=== PATIENT | male | born 1965 | race Two or more races ===

== ENCOUNTER 2020-08-09 10:36 | Emergency (ER) | payer MEDICAID, OTHER ==
[~2020-08-09] VITALS: Ht 193 cm; Wt 136.1 kg
[2020-08-09] MEDS ORDERED: LIDOCAINE 1% (LOCAL ANESTH.) PF 5ml SDV ID ONE (11:00)
[2020-08-09] MEDS ORDERED: ONDANSETRON HCL 4 MG/2 ML VIAL IV ONE (11:00)
[2020-08-09] MEDS ORDERED: MORPHINE SULFATE 4 MG/ML SYR/VIAL IV ONE (11:00)
[2020-08-09] MEDS ORDERED: SODIUM CHLORIDE 0.9% 1,000 ML IV ONE (11:00)
[2020-08-09] MEDS ORDERED: TETANUS-DIPTH-ACEL PERTUSSIS 0.5ML SYR Tdap IM ONE (11:00)
[2020-08-09] MEDS ORDERED: ceFAZolin 1GM/50ML 50 ML IV ONE (11:00)
[2020-08-09 11:09] LABS: Basophils # (auto) 0.1 10 ^3/uL (0-0.2); Basophils % (auto) 1.2 % (0.0-2.0); Eosinophils # (auto) 0.1 10 ^3/uL (0-0.8); Hematocrit 43.6 % (41.0-53.0); Lymphocytes # (auto) 2.1 10 ^3/uL (0.4-5.4); Lymphocytes % (auto) 28.6 % (10.0-50.0); Mean Corpuscular Hemoglobin 30.2 pg (28.0-32.0); Mean Corpuscular Hgb Conc. 34.4 g/dL (32.0-36.0); Mean Corpuscular Volume 87.8 fL (80.0-100.0); Monocytes # (auto) 0.4 10 ^3/uL (0-1.3); Monocytes % (auto) 5.6 % (0.0-12.0); Neutrophils # (auto) 4.5 10 ^3/uL (1.6-8.6); Neutrophils % (auto) 62.6 % (37.0-80.0); Nucleated Red Blood Cells % 0.1 %; Platelet Count (auto) 259 10^3/uL (140-450); Red Blood Cells 4.96 10^6/uL (4.5-5.90); Red Cell Distribution Width 14.4 % (11.8-14.3); White Blood Cell 7.2 10^3/uL (4.4-10.8)
[2020-08-09 11:35] LABS: Albumin 3.9 g/dL (3.4-5.0); Calcium 8.7 mg/dL (8.5-10.1); Potassium 3.9 mmol/L (3.5-5.1)
[2020-08-09 11:38] LABS: BUN/Creatinine Ratio 16.7; Bilirubin, Total 0.4 mg/dL (0.2-1.0); Total Protein 7.6 g/dL (6.4-8.2)
[2020-08-09 14:33] VITALS: BP 123/75
== END 2020-08-09 14:46 | disposition short-term general hospital (02) ==
LOC: ER 10:36
DX: S66.821A Laceration of other specified muscles, fascia and tendons at wrist and hand level, right hand, initial encounter (principal); F17.210 Nicotine dependence, cigarettes, uncomplicated; E11.65 Type 2 diabetes mellitus with hyperglycemia; Z23 Encounter for immunization; Z20.822 Contact with and (suspected) exposure to COVID-19; W01.0XXA Fall on same level from slipping, tripping and stumbling without subsequent striking against object, initial encounter; Y93.89 Activity, other specified; Y92.89 Other specified places as the place of occurrence of the external cause; Y99.8 Other external cause status
CPT/HCPCS: 29125; 36415; 73130; 80053; 85025; 87426; 90471; 90715; 96365; 96375; 99285; J0690; J2270; J2405; J7030

== ENCOUNTER 2021-08-09 13:17 | Emergency (ER) | payer MEDICAID ==
[~2021-08-09] VITALS: Ht 193 cm; Wt 136.1 kg
[2021-08-09] MEDS ORDERED: CEPH-509 PO (16:16)
[2021-08-09] MEDS ORDERED: CLIN300C8 PO (16:16)
[2021-08-09 17:18] VITALS: BP 111/60
== END 2021-08-09 17:19 | disposition home or self-care (01) ==
LOC: ER 13:17
DX: L03.115 Cellulitis of right lower limb (principal); L03.116 Cellulitis of left lower limb; I89.1 Lymphangitis; E11.9 Type 2 diabetes mellitus without complications; F17.210 Nicotine dependence, cigarettes, uncomplicated; Z79.2 Long term (current) use of antibiotics; Z79.899 Other long term (current) drug therapy
CPT/HCPCS: 93005; 93970

== ENCOUNTER 2023-03-17 17:36 | Inpatient (IN) | payer MEDICAID ==
[~2023-03-17] VITALS: Ht 193 cm; Wt 155.4 kg
[~2023-03-17 17:36] MED LIST: CEPH-509 PO; CLIN300C70 PO
[2023-03-17] MEDS ORDERED: FUROSEMIDE 20 MG/2 ML VIAL IV ONE (19:15)
[2023-03-17 19:49] LABS: Basophils # (auto) 0 10 ^3/uL (0-0.2); Basophils % (auto) 0.6 % (0.0-2.0); Eosinophils # (auto) 0.1 10 ^3/uL (0-0.8); Eosinophils % (auto) 1.2 % (0.0-7.0); Hematocrit 41.1 % (41.0-53.0); Hemoglobin 13.3 g/dL (13.5-17.5); Lymphocytes # (auto) 1.1 10 ^3/uL (0.4-5.4); Lymphocytes % (auto) 15.5 % (10.0-50.0); Mean Corpuscular Hemoglobin 29.5 pg (28.0-32.0); Mean Corpuscular Hgb Conc. 32.4 g/dL (32.0-36.0); Mean Corpuscular Volume 91.2 fL (80.0-100.0); Monocytes # (auto) 0.5 10 ^3/uL (0-1.3); Monocytes % (auto) 6.6 % (0.0-12.0); Neutrophils # (auto) 5.5 10 ^3/uL (1.6-8.6); Neutrophils % (auto) 76.1 % (37.0-80.0); Red Blood Cells 4.51 10^6/uL (4.5-5.90); White Blood Cell 7.3 10^3/uL (4.4-10.8)
[2023-03-17 20:17] LABS: Alanine Aminotransferase 24 U/L (7-40); Albumin 3.7 g/dL (3.2-4.8); Alkaline Phosphatase 156 U/L (46-116); Anion Gap 8 (5-15); Aspartate Aminotransferase 13 U/L (13-40); Bilirubin, Total 1.1 mg/dL (0.2-1.0); Blood Urea Nitrogen 12 mg/dL (9-23); Carbon Dioxide 24 mmol/L (20-30); Chloride 105 mmol/L (98-107); Glucose 391 mg/dL (74-106); Sodium 137 mmol/L (136-145); Total Protein 6.1 g/dL (5.7-8.2)
[2023-03-17] MEDS ORDERED: IOHEXOL 350 MG/ML 100ML IJ ONE (20:19)
[2023-03-17 20:21] LABS: INR 1.15 (0.9-1.15); Partial Thromboplastin Time 27.3 SEC (24.5-34.5)
[2023-03-17] MEDS ORDERED: NITROGLYCERIN 0.4 MG SL TAB SL PRN (23:45)
[2023-03-17] MEDS ORDERED: ONDANSETRON HCL 4 MG/2 ML VIAL IV PRN (23:45)
[2023-03-17] MEDS ORDERED: DEXTROSE (50%) 50ML SYRG IV PRN (23:45)
[2023-03-17] MEDS ORDERED: MORPHINE SULFATE INJ 2 MG/ml SYRG IV PRN (23:45)
[2023-03-17 23:58] VITALS: PULSE 98; RESP 18; O2SAT 98
[2023-03-18] VITALS (8 sets, daily range): BP systolic 101–140; BP diastolic 67–77; PULSE 86–94; RESP 16–20; TEMP 97.4–98.5; O2SAT 94–99
[2023-03-18] MEDS ORDERED: cefTRIAXone 1GM/50ML D5W 50 ML IV ONE
[2023-03-18] MEDS: ACCU-CHEK COMFORT CURVE STRIP VI SCH ×4 (00:34→17:20)
[2023-03-18] MEDS: InsuLIN REG 1unit/0.01ml Soln (100units/ml) SC SCH ×4 (00:39→17:45)
[2023-03-18 02:34] LABS: Urine Epithelial Cast None Seen /hpf (<5)
[2023-03-18 02:45] LABS: Urine Bacteria NONE SEEN /hpf (None Seen); Urine Blood Negative /uL (Negative); Urine Clarity Clear (Clear); Urine Mucus FEW (None Seen); Urine Protein, UAD Negative (Negative); Urine Specific Gravity 1.009 (1.001-1.035); Urine Urobilinogen Normal (Negative); Urine WBC <1 /hpf (0 - 3)
[2023-03-18 02:46] LABS: Urine Color STRAW (Yellow)
[2023-03-18] MEDS ORDERED: ACETAMINOPHEN 325 MG TAB PO PRN (03:30)
[2023-03-18 06:54] LABS: Basophils # (auto) 0.1 10 ^3/uL (0-0.2); Basophils % (auto) 0.8 % (0.0-2.0); Eosinophils # (auto) 0.1 10 ^3/uL (0-0.8); Hematocrit 38.7 % (41.0-53.0); Hemoglobin 12.9 g/dL (13.5-17.5); Lymphocytes # (auto) 1.2 10 ^3/uL (0.4-5.4); Lymphocytes % (auto) 17.5 % (10.0-50.0); Mean Corpuscular Hemoglobin 29.9 pg (28.0-32.0); Mean Corpuscular Hgb Conc. 33.3 g/dL (32.0-36.0); Mean Corpuscular Volume 89.6 fL (80.0-100.0); Monocytes # (auto) 0.5 10 ^3/uL (0-1.3); Neutrophils # (auto) 4.8 10 ^3/uL (1.6-8.6); Neutrophils % (auto) 72.7 % (37.0-80.0); Nucleated Red Blood Cells % 0.2 %; Red Blood Cells 4.32 10^6/uL (4.5-5.90); Red Cell Distribution Width 14.9 % (11.8-14.3); White Blood Cell 6.7 10^3/uL (4.4-10.8)
[2023-03-18 07:12] LABS: Alanine Aminotransferase 23 U/L (7-40); Alkaline Phosphatase 149 U/L (46-116); Anion Gap 7 (5-15); BUN/Creatinine Ratio 9.8 (10.0-20.0); Blood Urea Nitrogen 10 mg/dL (9-23); Calcium 8.9 mg/dL (8.5-10.1); Carbon Dioxide 25 mmol/L (20-30); Chloride 106 mmol/L (98-107); Sodium 138 mmol/L (136-145)
[2023-03-18 07:13] LABS: Albumin 3.6 g/dL (3.2-4.8); Aspartate Aminotransferase 13 U/L (13-40); Bilirubin, Total 1.2 mg/dL (0.2-1.0); Total Protein 5.9 g/dL (5.7-8.2)
[2023-03-18 07:16] LABS: Glucose 194 mg/dL (74-106)
[2023-03-18] MEDS ORDERED: FUROSEMIDE 40 MG TAB PO SCH (10:00)
[2023-03-18] MEDS: ASPirin 81 mg TAB PO SCH (10:10)
[2023-03-18] MEDS: CARVEDILOL 3.125 MG TAB PO SCH ×2 (10:12→22:07)
[2023-03-18] MEDS: FUROSEMIDE 20 MG/2 ML VIAL IV SCH ×2 (17:38→17:46)
[2023-03-18] MEDS ORDERED: FUROSEMIDE 20 MG/2 ML VIAL IV SCH (18:00)
[2023-03-19] MEDS: ACCU-CHEK COMFORT CURVE STRIP VI SCH ×4 (00:05→18:01)
[2023-03-19] MEDS: InsuLIN REG 1unit/0.01ml Soln (100units/ml) SC SCH ×4 (00:07→18:00)
[2023-03-19 05:20] VITALS: BP 127/78; PULSE 88; RESP 20; O2SAT 98
[2023-03-19] MEDS: FUROSEMIDE 20 MG/2 ML VIAL IV SCH ×2 (05:54→17:55)
[2023-03-19 08:00] VITALS: BP 117/72; PULSE 51; PULSE 76; RESP 20; TEMP 97.6; O2SAT 93
[2023-03-19 09:00] VITALS: BP 117/72; PULSE 51; RESP 20; TEMP 97.6; O2SAT 93
[2023-03-19] MEDS: ASPirin 81 mg TAB PO SCH (09:47)
[2023-03-19] MEDS: CARVEDILOL 3.125 MG TAB PO SCH ×2 (09:48→21:48)
[2023-03-19 13:00] VITALS: BP 110/62; PULSE 93; RESP 22; TEMP 97.7; O2SAT 94
[2023-03-19 20:00] VITALS: BP 113/58; PULSE 111; PULSE 97; RESP 20; TEMP 97.8
[2023-03-19 22:00] VITALS: BP 113/58; PULSE 97; RESP 20; TEMP 97.8; O2SAT 97
[2023-03-20] VITALS (8 sets, daily range): BP systolic 87–115; BP diastolic 46–83; PULSE 78–99; RESP 18–20; TEMP 97.2–98.8; O2SAT 95–97
[2023-03-20] MEDS: ACCU-CHEK COMFORT CURVE STRIP VI SCH ×4 (00:16→18:29)
[2023-03-20] MEDS: InsuLIN REG 1unit/0.01ml Soln (100units/ml) SC SCH ×4 (00:18→18:28)
[2023-03-20] MEDS: FUROSEMIDE 20 MG/2 ML VIAL IV SCH ×2 (05:47→18:27)
[2023-03-20] MEDS: ASPirin 81 mg TAB PO SCH (10:16)
[2023-03-20] MEDS: CARVEDILOL 3.125 MG TAB PO SCH ×2 (10:17→22:00)
[2023-03-20] MEDS: cefTRIAXone 1GM/50ML D5W 50 ML IV SCH (17:11)
[2023-03-20] MEDS: AZITHROMYCIN 500MG/ 250ML 250 ML IV SCH (18:08)
[2023-03-21] VITALS (7 sets, daily range): BP systolic 103–119; BP diastolic 62–77; PULSE 75–100; RESP 18–20; TEMP 97.1–98.2; O2SAT 93–96
[2023-03-21] MEDS: InsuLIN REG 1unit/0.01ml Soln (100units/ml) SC SCH ×5 (00:36→23:43)
[2023-03-21] MEDS: ACCU-CHEK COMFORT CURVE STRIP VI SCH ×5 (05:38→23:38)
[2023-03-21] MEDS: FUROSEMIDE 20 MG/2 ML VIAL IV SCH ×2 (05:39→18:09)
[2023-03-21 06:34] LABS: Basophils # (auto) 0 10 ^3/uL (0-0.2); Basophils % (auto) 0.8 % (0.0-2.0); Eosinophils # (auto) 0.1 10 ^3/uL (0-0.8); Hematocrit 39.5 % (41.0-53.0); Hemoglobin 13.1 g/dL (13.5-17.5); Lymphocytes # (auto) 1.6 10 ^3/uL (0.4-5.4); Mean Corpuscular Hemoglobin 29.4 pg (28.0-32.0); Mean Corpuscular Hgb Conc. 33.2 g/dL (32.0-36.0); Mean Corpuscular Volume 88.6 fL (80.0-100.0); Monocytes # (auto) 0.4 10 ^3/uL (0-1.3); Monocytes % (auto) 7.8 % (0.0-12.0); Neutrophils # (auto) 3.5 10 ^3/uL (1.6-8.6); Neutrophils % (auto) 61.4 % (37.0-80.0); Nucleated Red Blood Cells % 0.1 %; Red Blood Cells 4.46 10^6/uL (4.5-5.90); Red Cell Distribution Width 14.5 % (11.8-14.3); White Blood Cell 5.7 10^3/uL (4.4-10.8)
[2023-03-21 06:40] LABS: Anion Gap 6 (5-15); Carbon Dioxide 28 mmol/L (20-30); Chloride 103 mmol/L (98-107); Potassium 3.9 mmol/L (3.5-5.1); Sodium 137 mmol/L (136-145)
[2023-03-21 06:42] LABS: Calcium 8.9 mg/dL (8.7-10.4)
[2023-03-21 06:46] LABS: BUN/Creatinine Ratio 20.5 (10.0-20.0); Blood Urea Nitrogen 23 mg/dL (9-23); Glucose 222 mg/dL (74-106)
[2023-03-21] MEDS: ASPirin 81 mg TAB PO SCH (07:52)
[2023-03-21] MEDS: cefTRIAXone 1GM/50ML D5W 50 ML IV SCH (07:52)
[2023-03-21] MEDS: CARVEDILOL 3.125 MG TAB PO SCH ×2 (07:53→21:44)
[2023-03-21] MEDS: AZITHROMYCIN 500MG/ 250ML 250 ML IV SCH (10:13)
[2023-03-22] VITALS (8 sets, daily range): BP systolic 86–120; BP diastolic 40–69; PULSE 79–100; RESP 16–20; TEMP 97.7–99; O2SAT 94–96
[2023-03-22] MEDS: ACCU-CHEK COMFORT CURVE STRIP VI SCH ×4 (05:46→23:16)
[2023-03-22] MEDS: FUROSEMIDE 20 MG/2 ML VIAL IV SCH ×2 (05:55→18:24)
[2023-03-22] MEDS: InsuLIN REG 1unit/0.01ml Soln (100units/ml) SC SCH ×4 (06:08→23:18)
[2023-03-22] MEDS: ASPirin 81 mg TAB PO SCH (08:12)
[2023-03-22] MEDS: cefTRIAXone 1GM/50ML D5W 50 ML IV SCH (08:13)
[2023-03-22] MEDS: AZITHROMYCIN 500MG/ 250ML 250 ML IV SCH (09:46)
[2023-03-22] MEDS: CARVEDILOL 3.125 MG TAB PO SCH ×2 (10:00→21:28)
[2023-03-23 05:00] VITALS: BP 104/66; PULSE 82; RESP 16; TEMP 99; O2SAT 93
[2023-03-23] MEDS: FUROSEMIDE 20 MG/2 ML VIAL IV SCH (06:00)
[2023-03-23] MEDS: ACCU-CHEK COMFORT CURVE STRIP VI SCH ×2 (06:00→12:22)
[2023-03-23] MEDS: InsuLIN REG 1unit/0.01ml Soln (100units/ml) SC SCH ×2 (06:03→12:22)
[2023-03-23 07:57] VITALS: O2SAT 96
[2023-03-23 08:00] VITALS: PULSE 89
[2023-03-23] MEDS: CARVEDILOL 3.125 MG TAB PO SCH (09:37)
[2023-03-23] MEDS: ASPirin 81 mg TAB PO SCH (09:37)
[2023-03-23] MEDS: cefTRIAXone 1GM/50ML D5W 50 ML IV SCH (09:38)
[2023-03-23] MEDS ORDERED: FURO1TAB31 PO (10:59)
[2023-03-23] MEDS ORDERED: METF-371 PO (10:59)
[2023-03-23] MEDS ORDERED: METH4PAK PO (10:59)
[2023-03-23] MEDS ORDERED: AZIT-81 PO (10:59)
[2023-03-23] MEDS ORDERED: CIPR0.3S67 OP (11:02)
[2023-03-23 11:05] VITALS: BP 111/56; PULSE 88; RESP 18; TEMP 98.6
[2023-03-23] MEDS ORDERED: BLOO-200 XX (11:14)
[2023-03-23] MEDS: AZITHROMYCIN 500MG/ 250ML 250 ML IV SCH (11:28)
== END 2023-03-23 12:26 | disposition home or self-care (01) | DRG 139 ==
LOC: ER 17:36 → TELE 23:39 → TELE-WESTW 03-18 01:05
PROVIDERS: ADMIT Nurse Practitioner; ATTEND Internal Medicine
DX: J15.9 Unspecified bacterial pneumonia (principal); I50.23 Acute on chronic systolic (congestive) heart failure; I42.9 Cardiomyopathy, unspecified; R18.8 Other ascites; I11.0 Hypertensive heart disease with heart failure; K74.60 Unspecified cirrhosis of liver; R59.0 Localized enlarged lymph nodes; E11.65 Type 2 diabetes mellitus with hyperglycemia; E66.01 Morbid (severe) obesity due to excess calories; F17.210 Nicotine dependence, cigarettes, uncomplicated; Z68.41 Body mass index [BMI] 40.0-44.9, adult; Z83.3 Family history of diabetes mellitus; Z79.4 Long term (current) use of insulin; Z79.84 Long term (current) use of oral hypoglycemic drugs; Z91.199 Patient's noncompliance with other medical treatment and regimen due to unspecified reason
CPT/HCPCS: 36415; 71045; 71275; 80048; 80053; 81001; 82962; 83880; 84484; 85025; 85379; 85610; 85730; 93306; 93970; G0378; J1815

== ENCOUNTER 2023-04-26 19:50 | Inpatient (IN) | payer MEDICAID ==
[~2023-04-26] VITALS: Ht 193 cm; Wt 166.1 kg
[~2023-04-26 19:50] MED LIST changes: +AZIT-81 PO; +BLOO-200 XX; -CEPH-509 PO; +CIPR0.3S67 OP; -CLIN300C70 PO; +FURO1TAB31 PO; +METF-371 PO; +METH4PAK PO
[2023-04-26 21:48] LABS: Basophils # (auto) 0.1 10 ^3/uL (0-0.2); Eosinophils # (auto) 0.1 10 ^3/uL (0-0.8); Eosinophils % (auto) 1.2 % (0.0-7.0); Hematocrit 42.4 % (41.0-53.0); Hemoglobin 13.7 g/dL (13.5-17.5); Lymphocytes # (auto) 1.3 10 ^3/uL (0.4-5.4); Lymphocytes % (auto) 20.8 % (10.0-50.0); Mean Corpuscular Hemoglobin 28.7 pg (28.0-32.0); Mean Corpuscular Hgb Conc. 32.3 g/dL (32.0-36.0); Mean Corpuscular Volume 88.8 fL (80.0-100.0); Monocytes # (auto) 0.4 10 ^3/uL (0-1.3); Neutrophils # (auto) 4.3 10 ^3/uL (1.6-8.6); Nucleated Red Blood Cells % 0.1 %; Red Blood Cells 4.77 10^6/uL (4.5-5.90); Red Cell Distribution Width 15.3 % (11.8-14.3); White Blood Cell 6.2 10^3/uL (4.4-10.8)
[2023-04-26 22:04] LABS: Alanine Aminotransferase 19 U/L (7-40); Albumin 4.1 g/dL (3.2-4.8); Alkaline Phosphatase 155 U/L (46-116); Anion Gap 6 (5-15); Aspartate Aminotransferase 16 U/L (13-40); BUN/Creatinine Ratio 11.7 (10.0-20.0); Bilirubin, Total 1.7 mg/dL (0.2-1.0); Blood Urea Nitrogen 13 mg/dL (9-23); Calcium 9.2 mg/dL (8.7-10.4); Carbon Dioxide 25 mmol/L (20-30); Chloride 105 mmol/L (98-107); Glucose 268 mg/dL (74-106); Lipase 29 U/L (12-53); Potassium 3.7 mmol/L (3.5-5.1); Sodium 136 mmol/L (136-145); Total Protein 6.8 g/dL (5.7-8.2)
[2023-04-26 23:12] VITALS: PULSE 98; RESP 20; O2SAT 98
[2023-04-26] MEDS: HYDROcodone-ACET 10/325MG TAB PO ONE (23:19)
[2023-04-27] VITALS (7 sets, daily range): BP systolic 89–142; BP diastolic 51–72; PULSE 80–115; RESP 17–21; TEMP 97.4–98.8; O2SAT 95–100
[2023-04-27] MEDS: INSULIN LISPRO (HUMAN) 100 UNITS/ML ML SC ONE (00:45)
[2023-04-27] MEDS ORDERED: VANCOMYCIN PER PHARMACY 0 MG IV SCH (00:45)
[2023-04-27] MEDS: HYDROmorphone HCL 2 MG/ML VL/or syr IV ONE (00:45)
[2023-04-27] MEDS: PIPERACILLIN-TAZOB 3.375GM 100 ML IV ONE (00:45)
[2023-04-27] MEDS: FUROSEMIDE 40 MG/4 ML VIAL IV ONE (00:45)
[2023-04-27] MEDS: VANCOMYCIN 1GM/200ML 200 ML IV SCH ×2 (01:00→10:50)
[2023-04-27] MEDS ORDERED: DOCUSATE SOD 100 MG CAP PO PRN (02:30)
[2023-04-27] MEDS ORDERED: ACETAMINOPHEN 325 MG TAB PO PRN (02:30)
[2023-04-27] MEDS ORDERED: DEXTROSE (50%) 50ML SYRG IV PRN (02:30)
[2023-04-27 03:36] LABS: Basophils # (auto) 0.1 10 ^3/uL (0-0.2); Basophils % (auto) 0.9 % (0.0-2.0); Eosinophils # (auto) 0.1 10 ^3/uL (0-0.8); Eosinophils % (auto) 2.1 % (0.0-7.0); Hematocrit 39.4 % (41.0-53.0); Hemoglobin 12.7 g/dL (13.5-17.5); Lymphocytes # (auto) 1.4 10 ^3/uL (0.4-5.4); Lymphocytes % (auto) 25.4 % (10.0-50.0); Mean Corpuscular Hemoglobin 28.6 pg (28.0-32.0); Mean Corpuscular Hgb Conc. 32.2 g/dL (32.0-36.0); Monocytes # (auto) 0.5 10 ^3/uL (0-1.3); Monocytes % (auto) 8.4 % (0.0-12.0); Neutrophils # (auto) 3.5 10 ^3/uL (1.6-8.6); Neutrophils % (auto) 63.2 % (37.0-80.0); Red Blood Cells 4.43 10^6/uL (4.5-5.90); Red Cell Distribution Width 15.3 % (11.8-14.3); White Blood Cell 5.5 10^3/uL (4.4-10.8)
[2023-04-27 03:55] LABS: Alanine Aminotransferase 17 U/L (7-40); Albumin 3.7 g/dL (3.2-4.8); Alkaline Phosphatase 139 U/L (46-116); Anion Gap 6 (5-15); Aspartate Aminotransferase 15 U/L (13-40); BUN/Creatinine Ratio 12.6 (10.0-20.0); Bilirubin, Total 1.6 mg/dL (0.2-1.0); Blood Urea Nitrogen 14 mg/dL (9-23); Calcium 8.8 mg/dL (8.7-10.4); Carbon Dioxide 26 mmol/L (20-30); Chloride 106 mmol/L (98-107); Glucose 188 mg/dL (74-106); Potassium 3.3 mmol/L (3.5-5.1); Sodium 138 mmol/L (136-145); Total Protein 6.1 g/dL (5.7-8.2)
[2023-04-27] MEDS ORDERED: MORPHINE SULFATE INJ 2 MG/ml SYRG IV PRN (05:00)
[2023-04-27] MEDS ORDERED: NITROGLYCERIN 0.4 MG SL TAB SL PRN (05:00)
[2023-04-27] MEDS: SODIUM CHLOR 0.9% PF (SALINE LOCK) 10ML VIAL/SYR IV SCH (05:26)
[2023-04-27 05:35] LABS: Urine Bacteria FEW /hpf (None Seen); Urine Blood Negative /uL (Negative); Urine Clarity Clear (Clear); Urine Color Colorless (Yellow); Urine Protein, UAD Negative (Negative); Urine Specific Gravity 1.008 (1.001-1.035); Urine Urobilinogen Normal (Negative); Urine WBC 1 /hpf (0 - 3)
[2023-04-27] MEDS: InsuLIN REG 1unit/0.01ml Soln (100units/ml) SC SCH ×2 (05:57→22:47)
[2023-04-27] MEDS: ACCU-CHEK COMFORT CURVE STRIP VI SCH (05:57)
[2023-04-27] MEDS: CARVEDILOL 3.125 MG TAB PO SCH (10:50)
[2023-04-27] MEDS: FUROSEMIDE 40 MG/4 ML VIAL IV SCH (10:51)
[2023-04-27] MEDS: ASPirin 81 mg TAB PO SCH (10:51)
[2023-04-27] MEDS: PIPERACILLIN-TAZOB 3.375GM 100 ML IV SCH (15:10)
[2023-04-27 17:04] LABS: Triglycerides 45 mg/dL (< 150)
[2023-04-27 17:05] LABS: LDL Cholesterol 72 mg/dL (< 100)
[2023-04-27 17:06] LABS: Cholesterol 109 mg/dL (< 200); HDL Cholesterol 29 mg/dL (40-59)
[2023-04-27] MEDS: POTASSIUM CHL 20 Meq TABLET PO SCH (17:47)
[2023-04-27] MEDS: HYDROcodone-ACET 5/325MG TAB PO PRN (22:50)
[2023-04-27] MEDS: BACITRACIN TOP OINT 1 UD PKG TOP SCH (23:02)
[2023-04-28] VITALS (7 sets, daily range): BP systolic 106–118; BP diastolic 71–77; PULSE 81–96; RESP 18–21; TEMP 96.6–97.9; O2SAT 94–100
[2023-04-28 06:05] LABS: Basophils # (auto) 0.1 10 ^3/uL (0-0.2); Basophils % (auto) 1.5 % (0.0-2.0); Eosinophils # (auto) 0.1 10 ^3/uL (0-0.8); Eosinophils % (auto) 2.1 % (0.0-7.0); Hemoglobin 12.9 g/dL (13.5-17.5); Lymphocytes # (auto) 1.4 10 ^3/uL (0.4-5.4); Lymphocytes % (auto) 28.1 % (10.0-50.0); Mean Corpuscular Hemoglobin 29.1 pg (28.0-32.0); Mean Corpuscular Hgb Conc. 33.1 g/dL (32.0-36.0); Monocytes # (auto) 0.4 10 ^3/uL (0-1.3); Monocytes % (auto) 7.8 % (0.0-12.0); Neutrophils # (auto) 2.9 10 ^3/uL (1.6-8.6); Neutrophils % (auto) 60.5 % (37.0-80.0); Nucleated Red Blood Cells % 0.1 %; Red Blood Cells 4.43 10^6/uL (4.5-5.90); Red Cell Distribution Width 14.8 % (11.8-14.3); White Blood Cell 4.8 10^3/uL (4.4-10.8)
[2023-04-28 06:20] LABS: Alanine Aminotransferase 19 U/L (7-40); Albumin 3.7 g/dL (3.2-4.8); Alkaline Phosphatase 149 U/L (46-116); Anion Gap 8 (5-15); Aspartate Aminotransferase 20 U/L (13-40); BUN/Creatinine Ratio 14.4 (10.0-20.0); Blood Urea Nitrogen 15 mg/dL (9-23); Carbon Dioxide 23 mmol/L (20-30); Chloride 106 mmol/L (98-107); Glucose 140 mg/dL (74-106); Potassium 3.4 mmol/L (3.5-5.1); Sodium 137 mmol/L (136-145)
[2023-04-28 06:21] LABS: Bilirubin, Total 1.6 mg/dL (0.2-1.0); Total Protein 6.2 g/dL (5.7-8.2)
[2023-04-28] MEDS: NICOTINE 21MG/24 HR TOPICAL PATCH TD ONE (12:47)
[2023-04-28] MEDS: FUROSEMIDE 40 MG/4 ML VIAL IV SCH (18:00)
[2023-04-28] MEDS: POTASSIUM CHL 20 Meq TABLET PO ONE (18:27)
[2023-04-29] VITALS (7 sets, daily range): BP systolic 106–123; BP diastolic 69–88; PULSE 86–95; RESP 18–20; TEMP 97.5–98; O2SAT 93–97
[2023-04-29] MEDS ORDERED: METOCLOPRAMIDE HCL 5MG/ml INJ 2ml VIAL IV PRN
[2023-04-29 06:04] LABS: Basophils # (auto) 0.1 10 ^3/uL (0-0.2); Eosinophils # (auto) 0.1 10 ^3/uL (0-0.8); Eosinophils % (auto) 2.2 % (0.0-7.0); Hemoglobin 12.7 g/dL (13.5-17.5); Lymphocytes # (auto) 1.1 10 ^3/uL (0.4-5.4); Lymphocytes % (auto) 20.5 % (10.0-50.0); Mean Corpuscular Hemoglobin 28.7 pg (28.0-32.0); Mean Corpuscular Hgb Conc. 32.6 g/dL (32.0-36.0); Mean Corpuscular Volume 88.1 fL (80.0-100.0); Monocytes # (auto) 0.4 10 ^3/uL (0-1.3); Monocytes % (auto) 7.7 % (0.0-12.0); Neutrophils # (auto) 3.7 10 ^3/uL (1.6-8.6); Neutrophils % (auto) 68.6 % (37.0-80.0); Red Blood Cells 4.43 10^6/uL (4.5-5.90); Red Cell Distribution Width 14.9 % (11.8-14.3); White Blood Cell 5.5 10^3/uL (4.4-10.8)
[2023-04-29 06:25] LABS: Alanine Aminotransferase 17 U/L (7-40); Albumin 3.6 g/dL (3.2-4.8); Alkaline Phosphatase 149 U/L (46-116); Anion Gap 7 (5-15); Aspartate Aminotransferase 19 U/L (13-40); BUN/Creatinine Ratio 17.5 (10.0-20.0); Blood Urea Nitrogen 17 mg/dL (9-23); Carbon Dioxide 25 mmol/L (20-30); Chloride 105 mmol/L (98-107); Glucose 151 mg/dL (74-106); Potassium 3.5 mmol/L (3.5-5.1); Sodium 137 mmol/L (136-145)
[2023-04-29 06:26] LABS: Bilirubin, Total 1.6 mg/dL (0.2-1.0)
[2023-04-29] MEDS: NICOTINE 21MG/24 HR TOPICAL PATCH TD SCH (09:27)
[2023-04-29] MEDS: SPIRONOLACTONE 25 MG TAB PO SCH (14:10)
[2023-04-29] MEDS: EMPAGLIFLOZIN 10 MG TAB PO SCH (14:10)
[2023-04-29] MEDS: ONDANSETRON HCL 4 MG/2 ML VIAL IV PRN (14:13)
[2023-04-29] MEDS: METOCLOPRAMIDE HCL 5MG/ml INJ 2ml VIAL IV ONE (17:54)
[2023-04-30] VITALS (7 sets, daily range): BP systolic 103–118; BP diastolic 62–82; PULSE 82–90; RESP 16–20; TEMP 97.6–98.6; O2SAT 92–98
[2023-04-30 06:07] LABS: Basophils # (auto) 0.1 10 ^3/uL (0-0.2); Eosinophils # (auto) 0.1 10 ^3/uL (0-0.8); Eosinophils % (auto) 1.8 % (0.0-7.0); Hematocrit 42.8 % (41.0-53.0); Hemoglobin 13.9 g/dL (13.5-17.5); Lymphocytes # (auto) 1.3 10 ^3/uL (0.4-5.4); Lymphocytes % (auto) 20.3 % (10.0-50.0); Mean Corpuscular Hemoglobin 28.9 pg (28.0-32.0); Mean Corpuscular Hgb Conc. 32.4 g/dL (32.0-36.0); Mean Corpuscular Volume 89.2 fL (80.0-100.0); Monocytes # (auto) 0.6 10 ^3/uL (0-1.3); Monocytes % (auto) 8.7 % (0.0-12.0); Neutrophils # (auto) 4.5 10 ^3/uL (1.6-8.6); Neutrophils % (auto) 68.2 % (37.0-80.0); Nucleated Red Blood Cells % 0.1 %; White Blood Cell 6.6 10^3/uL (4.4-10.8)
[2023-04-30 06:32] LABS: Alanine Aminotransferase 19 U/L (7-40); Albumin 3.7 g/dL (3.2-4.8); Alkaline Phosphatase 168 U/L (46-116); Anion Gap 9 (5-15); Aspartate Aminotransferase 25 U/L (13-40); BUN/Creatinine Ratio 14.2 (10.0-20.0); Blood Urea Nitrogen 16 mg/dL (9-23); Carbon Dioxide 25 mmol/L (20-30); Chloride 104 mmol/L (98-107); Glucose 185 mg/dL (74-106); Potassium 3.6 mmol/L (3.5-5.1); Sodium 138 mmol/L (136-145)
[2023-04-30 06:33] LABS: Bilirubin, Total 1.3 mg/dL (0.2-1.0); Total Protein 6.4 g/dL (5.7-8.2)
[2023-05-01 05:00] VITALS: BP 118/75; PULSE 79; RESP 18; TEMP 97.9; O2SAT 96
[2023-05-01 05:14] LABS: Basophils # (auto) 0.1 10 ^3/uL (0-0.2); Basophils % (auto) 0.9 % (0.0-2.0); Eosinophils # (auto) 0.2 10 ^3/uL (0-0.8); Eosinophils % (auto) 2.1 % (0.0-7.0); Hematocrit 41.1 % (41.0-53.0); Hemoglobin 13.4 g/dL (13.5-17.5); Lymphocytes # (auto) 1.3 10 ^3/uL (0.4-5.4); Lymphocytes % (auto) 16.5 % (10.0-50.0); Mean Corpuscular Hemoglobin 28.9 pg (28.0-32.0); Mean Corpuscular Hgb Conc. 32.7 g/dL (32.0-36.0); Mean Corpuscular Volume 88.3 fL (80.0-100.0); Monocytes # (auto) 0.5 10 ^3/uL (0-1.3); Neutrophils # (auto) 5.6 10 ^3/uL (1.6-8.6); Neutrophils % (auto) 73.5 % (37.0-80.0); Red Blood Cells 4.65 10^6/uL (4.5-5.90); Red Cell Distribution Width 15.1 % (11.8-14.3); White Blood Cell 7.6 10^3/uL (4.4-10.8)
[2023-05-01 05:36] LABS: Alanine Aminotransferase 17 U/L (7-40); Albumin 3.7 g/dL (3.2-4.8); Alkaline Phosphatase 165 U/L (46-116); Anion Gap 6 (5-15); Aspartate Aminotransferase 20 U/L (13-40); BUN/Creatinine Ratio 15.2 (10.0-20.0); Blood Urea Nitrogen 17 mg/dL (9-23); Calcium 9.1 mg/dL (8.5-10.1); Carbon Dioxide 29 mmol/L (20-30); Chloride 103 mmol/L (98-107); Glucose 142 mg/dL (74-106); Potassium 3.5 mmol/L (3.5-5.1); Sodium 138 mmol/L (136-145)
[2023-05-01 05:37] LABS: Bilirubin, Total 1.5 mg/dL (0.2-1.0); Total Protein 6.3 g/dL (5.7-8.2)
[2023-05-01 08:00] VITALS: PULSE 82
[2023-05-01 09:09] VITALS: BP 128/73; PULSE 82; RESP 19; TEMP 97.5; O2SAT 95
[2023-05-01] MEDS ORDERED: EMPA1TAB PO (11:30)
[2023-05-01] MEDS ORDERED: FURO40TA4 PO (11:30)
[2023-05-01] MEDS ORDERED: SPIR25TA8 PO (11:30)
[2023-05-01] MEDS ORDERED: POTA1TAB61 PO (11:30)
[2023-05-01] MEDS ORDERED: ASPI-325 PO (11:47)
[2023-05-01] MEDS ORDERED: ATOR20TA50 PO (11:48)
== END 2023-05-01 17:48 | disposition home or self-care (01) | DRG 501 ==
LOC: ER 19:50 → TELE 04-27 04:58 → TELE-WESTW 04-27 11:18
PROVIDERS: ADMIT Internal Medicine; ATTEND Physician Assistant
DX: N43.3 Hydrocele, unspecified (principal); N17.0 Acute kidney failure with tubular necrosis; I50.23 Acute on chronic systolic (congestive) heart failure; I11.0 Hypertensive heart disease with heart failure; L03.115 Cellulitis of right lower limb; E11.65 Type 2 diabetes mellitus with hyperglycemia; E66.01 Morbid (severe) obesity due to excess calories; L03.116 Cellulitis of left lower limb; N50.89 Other specified disorders of the male genital organs; E87.6 Hypokalemia; E11.51 Type 2 diabetes mellitus with diabetic peripheral angiopathy without gangrene; F17.210 Nicotine dependence, cigarettes, uncomplicated; Z68.41 Body mass index [BMI] 40.0-44.9, adult; Z79.2 Long term (current) use of antibiotics; Z79.899 Other long term (current) drug therapy; Z83.3 Family history of diabetes mellitus; Z79.84 Long term (current) use of oral hypoglycemic drugs
CPT/HCPCS: 36415; 80053; 80061; 80202; 81001; 82962; 83036; 83605; 83690; 83880; 84484; 85025; 87040; 93925; 93970; 97163; G0378; J1815; J2405; J2543

== ENCOUNTER 2023-05-06 15:45 | Inpatient (IN) | payer MEDICAID ==
[~2023-05-06] VITALS: Ht 193 cm; Wt 160.0 kg
[~2023-05-06 15:45] MED LIST changes: +ASPI-325 PO; +ATOR20TA50 PO; -AZIT-81 PO; -BLOO-200 XX; -CIPR0.3S67 OP; +EMPA1TAB PO; +FURO40TA4 PO; -METH4PAK PO; +POTA1TAB61 PO; +SPIR25TA8 PO
[2023-05-06 18:46] LABS: Basophils # (auto) 0.1 10 ^3/uL (0-0.2); Eosinophils # (auto) 0.1 10 ^3/uL (0-0.8); Hemoglobin 14.4 g/dL (13.5-17.5); Lymphocytes # (auto) 1.4 10 ^3/uL (0.4-5.4); Lymphocytes % (auto) 16.3 % (10.0-50.0); Mean Corpuscular Hemoglobin 28.8 pg (28.0-32.0); Monocytes # (auto) 0.9 10 ^3/uL (0-1.3); Monocytes % (auto) 9.9 % (0.0-12.0); Neutrophils # (auto) 6.3 10 ^3/uL (1.6-8.6); Neutrophils % (auto) 71.8 % (37.0-80.0); Nucleated Red Blood Cells % 0.1 %; Red Cell Distribution Width 15.3 % (11.8-14.3); White Blood Cell 8.8 10^3/uL (4.4-10.8)
[2023-05-06] MEDS ORDERED: VANCOMYCIN PER PHARMACY 0 MG IV SCH (19:00)
[2023-05-06 19:07] LABS: Alanine Aminotransferase 51 U/L (7-40); Alkaline Phosphatase 274 U/L (46-116); Anion Gap 8 (5-15); Aspartate Aminotransferase 54 U/L (13-40); Bilirubin, Total 2.3 mg/dL (0.2-1.0); Blood Urea Nitrogen 22 mg/dL (9-23); Calcium 9.4 mg/dL (8.7-10.4); Carbon Dioxide 25 mmol/L (20-30); Chloride 103 mmol/L (98-107); Glucose 173 mg/dL (74-106); Magnesium 2.3 mg/dL (1.6-2.6); Potassium 4.1 mmol/L (3.5-5.1); Sodium 136 mmol/L (136-145); Total Protein 6.6 g/dL (5.7-8.2)
[2023-05-06 19:13] LABS: Lactic Acid w/Reflex 2.3 mmol/L (0.4-2.0)
[2023-05-06 19:29] LABS: CRP High Sensitivity 7.68 mg/dL (<1.0)
[2023-05-06 19:37] LABS: Erythrocyte Sedimentation Rate 10 mm/hr (0-20)
[2023-05-06 20:41] LABS: Urine Bacteria FEW /hpf (None Seen); Urine Blood TRACE /uL (Negative); Urine Clarity Clear (Clear); Urine Color Yellow (Yellow); Urine Protein, UAD 1+ (Negative); Urine Specific Gravity 1.037 (1.001-1.035); Urine WBC 9 /hpf (0 - 3); Urine pH 5.5 (5.0-8.0)
[2023-05-06] MEDS: FUROSEMIDE 100 MG/10ML VIAL IV ONE (21:30)
[2023-05-06] MEDS: VANCOMYCIN 1GM/200ML 200 ML IV ONE (21:31)
[2023-05-06 21:44] VITALS: PULSE 97; RESP 16; O2SAT 98
[2023-05-06] MEDS ORDERED: NITROGLYCERIN 0.4 MG SL TAB SL PRN (22:15)
[2023-05-06] MEDS ORDERED: MORPHINE SULFATE INJ 2 MG/ml SYRG IV PRN (22:15)
[2023-05-06] MEDS ORDERED: DEXTROSE (50%) 50ML SYRG IV PRN (22:15)
[2023-05-06] MEDS ORDERED: ACETAMINOPHEN 325 MG TAB PO PRN (22:15)
[2023-05-06 22:45] LABS: Amphetamine Screen, Urine Pos (NEGATIVE); Barbiturate Scree,Urine Neg (NEGATIVE); Benzodiazephine Screen, Urine Neg (NEGATIVE); Cannabinoid Screen, Urine Neg (NEGATIVE); Cocaine Screen, Urine Neg (NEGATIVE); Opiate Scree,Urine Neg (NEGATIVE); Phencyclidine Screen, Urine Neg (NEGATIVE)
[2023-05-06] MEDS: PIPERACILLIN-TAZOB 3.375GM 100 ML IV ONE (23:14)
[2023-05-07] VITALS (7 sets, daily range): BP systolic 103–133; BP diastolic 60–86; PULSE 86–101; RESP 16–22; TEMP 97.8–98.9; O2SAT 92–98
[2023-05-07] MEDS: PIPERACILLIN-TAZOB 3.375GM 100 ML IV SCH (06:01)
[2023-05-07] MEDS: ACCU-CHEK COMFORT CURVE STRIP VI SCH (06:02)
[2023-05-07] MEDS: FUROSEMIDE 40 MG/4 ML VIAL IV SCH (06:02)
[2023-05-07] MEDS: InsuLIN REG 1unit/0.01ml Soln (100units/ml) SC SCH (06:09)
[2023-05-07 06:51] LABS: Basophils # (auto) 0.1 10 ^3/uL (0-0.2); Basophils % (auto) 0.9 % (0.0-2.0); Eosinophils # (auto) 0 10 ^3/uL (0-0.8); Eosinophils % (auto) 0.5 % (0.0-7.0); Hematocrit 38.9 % (41.0-53.0); Hemoglobin 12.7 g/dL (13.5-17.5); Lymphocytes # (auto) 1.1 10 ^3/uL (0.4-5.4); Lymphocytes % (auto) 12.5 % (10.0-50.0); Mean Corpuscular Hemoglobin 28.8 pg (28.0-32.0); Mean Corpuscular Hgb Conc. 32.7 g/dL (32.0-36.0); Monocytes # (auto) 0.8 10 ^3/uL (0-1.3); Monocytes % (auto) 9.2 % (0.0-12.0); Neutrophils # (auto) 6.8 10 ^3/uL (1.6-8.6); Neutrophils % (auto) 76.9 % (37.0-80.0); Red Blood Cells 4.42 10^6/uL (4.5-5.90); Red Cell Distribution Width 15.1 % (11.8-14.3); White Blood Cell 8.8 10^3/uL (4.4-10.8)
[2023-05-07 07:03] LABS: Alanine Aminotransferase 44 U/L (7-40); Albumin 3.7 g/dL (3.2-4.8); Alkaline Phosphatase 231 U/L (46-116); Anion Gap 8 (5-15); Aspartate Aminotransferase 37 U/L (13-40); BUN/Creatinine Ratio 17.4 (10.0-20.0); Blood Urea Nitrogen 19 mg/dL (9-23); Calcium 9.1 mg/dL (8.5-10.1); Carbon Dioxide 24 mmol/L (20-30); Chloride 105 mmol/L (98-107); Glucose 167 mg/dL (74-106); Potassium 3.6 mmol/L (3.5-5.1); Sodium 137 mmol/L (136-145)
[2023-05-07] MEDS: VANCOMYCIN 1GM/200ML 200 ML IV SCH (09:34)
[2023-05-07] MEDS: SPIRONOLACTONE 25 MG TAB PO SCH (09:34)
[2023-05-07] MEDS: CARVEDILOL 3.125 MG TAB PO SCH (09:35)
[2023-05-07] MEDS: ENOXAPARIN SOD 40 MG/0.4 ML SYRINGE SC SCH (09:35)
[2023-05-07] MEDS: ONDANSETRON HCL 4 MG/2 ML VIAL IV PRN (17:25)
[2023-05-07] MEDS: ATORVASTATIN 20 MG TAB PO SCH (22:19)
[2023-05-07] MEDS: SACUBITRIL-VALSARTAN 24mg/26mg TAB PO SCH (22:19)
[2023-05-08] VITALS (7 sets, daily range): BP systolic 90–116; BP diastolic 55–75; PULSE 69–80; RESP 16–20; TEMP 97.5–99.4; O2SAT 92–100
[2023-05-08] MEDS: EMPAGLIFLOZIN 10 MG TAB PO SCH (09:45)
[2023-05-08] MEDS: HYDROcodone-ACET 5/325MG TAB PO PRN (11:09)
[2023-05-08 12:57] LABS: Chloride 103 mmol/L (98-107); Potassium 3.4 mmol/L (3.5-5.1); Sodium 136 mmol/L (136-145)
[2023-05-08 12:58] LABS: Anion Gap 4 (5-15); Calcium 8.4 mg/dL (8.5-10.1); Carbon Dioxide 29 mmol/L (20-30)
[2023-05-08 13:03] LABS: BUN/Creatinine Ratio 17.9 (10.0-20.0); Blood Urea Nitrogen 22 mg/dL (9-23); Glucose 172 mg/dL (74-106)
[2023-05-08] MEDS: METOPROLOL TARTRATE 25 MG TAB PO SCH (22:53)
[2023-05-08] MEDS: SACUBITRIL-VALSARTAN 24mg/26mg TAB PO SCH (22:53)
[2023-05-09] VITALS (7 sets, daily range): BP systolic 94–112; BP diastolic 54–77; PULSE 71–90; RESP 18–22; TEMP 97.5–99.4; O2SAT 90–98
[2023-05-09] MEDS: TEMAZEPAM 15 MG CAP PO PRN (02:07)
[2023-05-09] MEDS: SPIRONOLACTONE 25 MG TAB PO SCH (09:29)
[2023-05-09] MEDS: NICOTINE 14 MG/24HR TOPICAL PATCH TD SCH (22:10)
[2023-05-10] VITALS (7 sets, daily range): BP systolic 98–121; BP diastolic 51–82; PULSE 64–81; RESP 16–20; TEMP 97.1–98.9; O2SAT 96–100
[2023-05-10 06:02] LABS: Basophils # (auto) 0.1 10 ^3/uL (0-0.2); Eosinophils # (auto) 0.1 10 ^3/uL (0-0.8); Eosinophils % (auto) 1.5 % (0.0-7.0); Lymphocytes # (auto) 1.5 10 ^3/uL (0.4-5.4); Mean Corpuscular Hemoglobin 28.5 pg (28.0-32.0); Mean Corpuscular Hgb Conc. 32.5 g/dL (32.0-36.0); Mean Corpuscular Volume 87.9 fL (80.0-100.0); Monocytes # (auto) 0.8 10 ^3/uL (0-1.3); Monocytes % (auto) 10.2 % (0.0-12.0); Neutrophils # (auto) 5.7 10 ^3/uL (1.6-8.6); Neutrophils % (auto) 69.3 % (37.0-80.0); Nucleated Red Blood Cells % 0.1 %; Red Cell Distribution Width 15.3 % (11.8-14.3); White Blood Cell 8.2 10^3/uL (4.4-10.8)
[2023-05-10 06:32] LABS: Anion Gap 8 (5-15); Carbon Dioxide 28 mmol/L (20-30); Chloride 100 mmol/L (98-107); Potassium 3.4 mmol/L (3.5-5.1); Sodium 136 mmol/L (136-145)
[2023-05-10 06:34] LABS: Calcium 8.9 mg/dL (8.7-10.4)
[2023-05-10 06:38] LABS: BUN/Creatinine Ratio 15.7 (10.0-20.0); Blood Urea Nitrogen 18 mg/dL (9-23); Glucose 135 mg/dL (74-106)
[2023-05-10] MEDS: cefTRIAXone 1GM/50ML D5W 50 ML IV ONE (12:17)
[2023-05-11] VITALS (7 sets, daily range): BP systolic 96–116; BP diastolic 50–78; PULSE 73–96; RESP 17–20; TEMP 97–98; O2SAT 90–99
[2023-05-11] MEDS: cefTRIAXone 1GM/50ML D5W 50 ML IV SCH (08:25)
[2023-05-11] MEDS: VANCOMYCIN 1GM/200ML 200 ML IV SCH (14:04)
[2023-05-12] VITALS (7 sets, daily range): BP systolic 102–116; BP diastolic 45–74; PULSE 73–85; RESP 20; TEMP 97.5–98.4; O2SAT 94–98
[2023-05-13] VITALS (7 sets, daily range): BP systolic 95–109; BP diastolic 46–62; PULSE 60–84; RESP 18–22; TEMP 97.6–98.6; O2SAT 90–99
[2023-05-13 06:22] LABS: Basophils # (auto) 0.1 10 ^3/uL (0-0.2); Basophils % (auto) 0.9 % (0.0-2.0); Eosinophils # (auto) 0.2 10 ^3/uL (0-0.8); Eosinophils % (auto) 3.2 % (0.0-7.0); Hematocrit 39.1 % (41.0-53.0); Hemoglobin 12.6 g/dL (13.5-17.5); Lymphocytes # (auto) 1.4 10 ^3/uL (0.4-5.4); Lymphocytes % (auto) 18.3 % (10.0-50.0); Mean Corpuscular Hemoglobin 28.2 pg (28.0-32.0); Mean Corpuscular Hgb Conc. 32.3 g/dL (32.0-36.0); Mean Corpuscular Volume 87.2 fL (80.0-100.0); Monocytes # (auto) 0.6 10 ^3/uL (0-1.3); Monocytes % (auto) 8.5 % (0.0-12.0); Neutrophils # (auto) 5.1 10 ^3/uL (1.6-8.6); Neutrophils % (auto) 69.1 % (37.0-80.0); Red Blood Cells 4.49 10^6/uL (4.5-5.90); Red Cell Distribution Width 15.3 % (11.8-14.3); White Blood Cell 7.4 10^3/uL (4.4-10.8)
[2023-05-13 06:43] LABS: Alanine Aminotransferase 37 U/L (7-40); Anion Gap 6 (5-15); Aspartate Aminotransferase 31 U/L (13-40); BUN/Creatinine Ratio 16.5 (10.0-20.0); Blood Urea Nitrogen 16 mg/dL (9-23); Carbon Dioxide 29 mmol/L (20-30); Chloride 104 mmol/L (98-107); Glucose 154 mg/dL (74-106); Potassium 3.8 mmol/L (3.5-5.1); Sodium 139 mmol/L (136-145)
[2023-05-14] VITALS (8 sets, daily range): BP systolic 93–118; BP diastolic 47–75; PULSE 70–84; RESP 18–20; TEMP 97.3–98.2; O2SAT 92–97
[2023-05-15] VITALS (8 sets, daily range): BP systolic 94–111; BP diastolic 46–67; PULSE 60–86; RESP 14–20; TEMP 97–98.3; O2SAT 91–100
[2023-05-15] MEDS ORDERED: LOPERAMIDE HCL 2 MG CAP/TAB PO ONE (05:00)
[2023-05-15] MEDS ORDERED: LOPERAMIDE HCL 2 MG CAP/TAB PO PRN (05:30)
[2023-05-15] MEDS: DAKINS QUARTER STR 0.125% (NaHypochlorite) 473 ML TOPICAL SOL TOP ONE (23:08)
[2023-05-16 01:00] VITALS: BP 104/55; PULSE 66; RESP 16; TEMP 97.4; O2SAT 96
[2023-05-16 05:12] VITALS: BP 101/68; PULSE 79; RESP 18; TEMP 98.2; O2SAT 97
[2023-05-16 08:00] VITALS: PULSE 85
[2023-05-16 09:15] VITALS: BP 109/40; PULSE 88; RESP 20; TEMP 98.3; O2SAT 98
[2023-05-16] MEDS ORDERED: SACU1TAB PO (11:11)
[2023-05-16] MEDS ORDERED: NIC21P TOP (11:11)
[2023-05-16] MEDS ORDERED: CLIN300C70 PO (11:11)
[2023-05-16] MEDS ORDERED: HYDR-4902 PO (11:11)
[2023-05-16] MEDS ORDERED: FURO1TAB31 PO (11:13)
[2023-05-16] MEDS ORDERED: POTA-180 PO (11:13)
[2023-05-16] MEDS: DAKINS QUARTER STR 0.125% (NaHypochlorite) 473 ML TOPICAL SOL TOP SCH (13:00)
[2023-05-16 13:03] VITALS: BP 105/68; PULSE 81; RESP 20; TEMP 97.7; O2SAT 100
[2023-05-16 13:09] VITALS: BP 106/61; PULSE 81
== END 2023-05-16 14:45 | disposition home or self-care (01) | DRG 194 ==
LOC: ER 15:45 → TELE 22:20 → TELE-WESTW 22:20
PROVIDERS: ADMIT Nurse Practitioner; ATTEND Family Medicine
DX: I11.0 Hypertensive heart disease with heart failure (principal); L03.115 Cellulitis of right lower limb; E11.51 Type 2 diabetes mellitus with diabetic peripheral angiopathy without gangrene; E11.621 Type 2 diabetes mellitus with foot ulcer; L97.522 Non-pressure chronic ulcer of other part of left foot with fat layer exposed; B96.89 Other specified bacterial agents as the cause of diseases classified elsewhere; I50.23 Acute on chronic systolic (congestive) heart failure; L03.116 Cellulitis of left lower limb; F41.9 Anxiety disorder, unspecified; E66.01 Morbid (severe) obesity due to excess calories; F15.10 Other stimulant abuse, uncomplicated; F17.210 Nicotine dependence, cigarettes, uncomplicated; I70.201 Unspecified atherosclerosis of native arteries of extremities, right leg; I08.1 Rheumatic disorders of both mitral and tricuspid valves; E11.65 Type 2 diabetes mellitus with hyperglycemia; Z68.41 Body mass index [BMI] 40.0-44.9, adult; Z91.198 Patient's noncompliance with other medical treatment and regimen for other reason; Z71.51 Drug abuse counseling and surveillance of drug abuser; Z83.3 Family history of diabetes mellitus
CPT/HCPCS: 36415; 71045; 73718; 80048; 80053; 80202; 80307; 81001; 82565; 82962; 83605; 83735; 83880; 84450; 84460; 84484; 85025; 85652; 86141; 87040; 87077; 87081; 87086; 87088; 87186; 87205; 93005; 93306; 93925; G0378; J1815; J2405; J2543

== ENCOUNTER 2023-07-24 11:12 | Emergency (ER) | payer MEDICAID ==
[~2023-07-24] VITALS: Ht 188 cm; Wt 127.2 kg
[2023-07-24 11:12] VITALS: PULSE 0; RESP 0; O2SAT 62
[~2023-07-24 11:12] MED LIST changes: +CLIN1CAP70 PO; +HYDR-4902 PO; +NIC21P TOP; +POTA-180 PO; +POTA-215 PO; -POTA1TAB61 PO; +SACU1TAB PO
[2023-07-24] MEDS ORDERED: SODIUM BICARB 8.4% 50Meq/50ml SYR Vial IV ONE (11:24)
[2023-07-24] MEDS ORDERED: EPINEPHrine HCL 1 MG/10 ML SYRG ONE (11:36)
[2023-07-24 11:51] VITALS: BP 0/0; PULSE 0; RESP 12; O2SAT 64
== END 2023-07-24 11:39 ==
LOC: ER 11:12 → EDBD 11:15 → ER 11:39
DX: I46.9 Cardiac arrest, cause unspecified (principal); I50.9 Heart failure, unspecified; E11.9 Type 2 diabetes mellitus without complications; F17.210 Nicotine dependence, cigarettes, uncomplicated; Z79.899 Other long term (current) drug therapy
CPT/HCPCS: 31500; 92950; 99285; J0171